=== PATIENT | female | born 1985 | race Caucasian/White ===

== ENCOUNTER 2017-05-12 16:04 | Emergency (ER) | payer OTHER ==
[~2017-05-12] VITALS: Ht 165.1 cm; Wt 66.4 kg
[2017-05-12 16:12] VITALS: BP 122/78
--- NOTE | 2017-05-12 16:14 | NUR ---
PT AMBULATES TO CHAIR A
--- NOTE | 2017-05-12 16:20 | NUR ---
C/O RASH BASE OF LT 3RD DIGIT, BASE OF RT THUMB, BETWEEN RT 4TH AND 5TH DIGIT X 2 WKS . DENIES N/V/D; SKIN IS PINK/WARM/DRY; AAOX4 WITH EVEN AND STEADY GAIT; LUNGS CLEAR BL; HR EVEN AND REGULAR; PT DENIES ANY FEVER, CP, SOB, OR COUGH AT THIS TIME; PATIENT STATES PAIN OF 0/10 AT THIS TIME; VSS; ER MD MADE AWARE OF PT STATUS.
[2017-05-12 17:42] VITALS: BP 111/71
--- NOTE | 2017-05-12 17:42 | NUR ---
Patient discharged with v/s stable. Written and verbal after care instructions given and explained. Patient alert, oriented and verbalized understanding of instructions. Ambulatory with steady gait. All questions addressed prior to discharge. ID band removed. Patient advised to follow up with PMD. Rx of TRIAMCINOLONE ACETONIDE 0.1%/ BENADRYL/ IBUPROFEN given. Patient educated on indication of medication including possible reaction and side effects. Opportunity to ask questions provided and answered.
== END 2017-05-12 17:42 | disposition home or self-care (01) ==
LOC: MED 16:04
DX: L24.9 Irritant contact dermatitis, unspecified cause (principal)
CPT/HCPCS: 99283